=== PATIENT | male | born 2000 | race Hispanic/Latino ===

== ENCOUNTER 2023-08-05 10:41 | Emergency (ER) | payer SELFPAY ==
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
[2023-08-05 10:50] VITALS: BP 148/83; PULSE 90; RESP 16; TEMP 36.4; O2SAT 100
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
== END 2023-08-05 11:46 | disposition home or self-care (01) ==
PROVIDERS: Emergency Provider Nurse Practitioner Family
DX: S62.515A Nondisplaced fracture of proximal phalanx of left thumb, initial encounter for closed fracture (principal); W22.8XXA Striking against or struck by other objects, initial encounter
CPT/HCPCS: 29130; 73140; 99214; G0463